=== PATIENT | male | born 1945 | race Caucasian/White ===

== ENCOUNTER 2019-12-01 08:33 | Day surgery (SDC) | payer MEDICARE, OTHER ==
[2019-11-28 12:47] VITALS: BMI 22.8
[2019-12-01 08:57] LABS: INR-International Normal Ratio 0.9; PTT 25.9 SEC (22.9-36.1); Prothrombin Time 12.6 SEC (12.0-14.7)
[2019-12-01 08:58] LABS: #Basophils 0.1 thou/uL (0.0-0.2); #Eosinphils 0.3 thou/uL (0.0-0.7); #Lymphocytes 1.5 thou/uL (1.20-3.40); #Monocytes 0.7 thou/uL (0.11-0.59); #Neutrophils 3.7 thou/uL (1.40-6.50); %Basophils 1.5 % (0.0-1.0); %Eosinophils 4.4 % (0.0-10.0); %Lymphocytes 23.7 % (21.0-51.0); %Monocytes 10.7 % (0.0-10.0); %Neutrophils 59.8 % (42.0-75.0); Hemoglobin 15.3 g/dL (14.0-18.0); Mean Corpuscular HGB CONC 31.9 g/dL (32.0-36.0); Mean Corpuscular Hemoglobin 31.7 pg (27.0-31.0); Mean Corpuscular Volume 99.1 fL (78.0-98.0); Mean Platelet Volume 9.1 fL (7.4-10.4); Platelet Count 199 thou/uL (130-400); RBC Distribution Width 12.7 % (11.5-14.5); Red Blood Cell (RBC) Count 4.84 mill/uL (4.70-6.10); White Blood Cell (WBC) Count 6.2 thou/uL (4.8-10.8)
--- NOTE | 2019-12-01 10:38 | CT ---
CT Deep Bone Perc Biopsy History: Monoclonal gammopathy Comparison: None. Findings: Patient was brought to the CT suite. All questions were answered. Informed consent was obta ined. Timeout performed. The patient's pelvis prepped and draped in normal sterile fashion. 10 mL of buffered lidocaine was in stilled into the superficial and deep soft tissues. Using CT guidance the patient's right iliac bone was accessed. A total of 10 mL of bone marrow aspira te and a 2.5 cm core obtained. Patient tolerated the procedure well without complication. Impression: Technically successful CT-guided bone marrow biopsy.
[2019-12-01 10:51] VITALS: BP 115/80; TEMP 98.2
== END 2019-12-01 11:30 | disposition home or self-care (01) ==
LOC: CT 08:33
PROVIDERS: ATTEND Internal Medicine Hematology & Oncology
PROC: 07DR3ZX Extraction of Iliac Bone Marrow, Percutaneous Approach, Diagnostic (ICD-10-PCS; principal; 2019-12-01)
DX: D47.2 Monoclonal gammopathy (principal); F17.200 Nicotine dependence, unspecified, uncomplicated
CPT/HCPCS: 20225; 36415; 77012; 85025; 85097; 85610; 85730; 88184; 88237; 88264; 88280; 88305; 88311; 88313; 88342; 88365

== ENCOUNTER 2019-12-10 10:49 | Outpatient (CLI) | payer MEDICARE, OTHER ==
--- NOTE | 2019-12-10 11:36 | RAD ---
EXAM: Bone survey HISTORY: Multiple myeloma COMPARISON: None TECHNIQUE: Images of the skull, chest, spine, pelvis, bilateral upper extremities, and bilateral lowe r extremities were performed. FINDINGS: No fracture or dislocation are seen. No suspicious osseous lesions are identified. Degenerative ezra nges are seen in the spine. There is a remote healed right mid fibula fracture. IMPRESSION: No suspicious osseous lesions identified
== END 2019-12-10 10:50 | disposition home or self-care (01) ==
LOC: BICRAD 10:49
PROVIDERS: ATTEND Internal Medicine Hematology & Oncology
DX: C90.00 Multiple myeloma not having achieved remission (principal)
CPT/HCPCS: 77075